=== PATIENT | female | born 2000 | race Caucasian/White ===

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

== ENCOUNTER 2024-01-01 11:56 | Emergency (ER) | payer OTHER ==
[2024-01-01 12:04] VITALS: BMI 29.2
[2024-01-01] MEDS ORDERED: ACETAMINOPHEN INJECTION 100 ML IVPB ONE (12:46)
[2024-01-01] MEDS: ACETAMINOPHEN 1000 MG/100 ML BAG IVPB ONE (13:10)
[2024-01-01] MEDS: SODIUM CHLORIDE 0.9% 500 ML INFUS.BAG IV ONE (13:11)
[2024-01-01 13:23] LABS: BASO % 0.7 % (0-2.0); EOS % 0.9 % (0-4.5); HEMATOCRIT 25.1 % (32.4-45.2); HEMOGLOBIN 7.7 GM/dL (10.7-15.3); LYMPH % 34.5 % (8-40); MCHC 30.5 g/dl (32.0-36.0); MEAN CELL VOLUME 63.4 fl (80-96); MEAN PLT VOLUME 9.7 fl (7.5-11.1); MONO % 7.4 % (3.8-10.2); NEUT % 56.5 % (42.8-82.8); PH,URINE 6.5 (5.0-8.0); PLATELET COUNT 334 10^3/uL (134-434); RBC 3.96 M/mm3 (3.60-5.2); RDW 18.4 % (11.6-15.6); URINE APPEARANCE Error; URINE BILIRUBIN NEGATIVE (NEGATIVE); URINE COLOR YELLOW; URINE GLUCOSE (UA) NEGATIVE (NEGATIVE); URINE KETONE NEGATIVE (NEGATIVE); URINE LEUK ESTERASE NEGATIVE (NEGATIVE); URINE NITRITE NEGATIVE (NEGATIVE); URINE PROTEIN NEGATIVE (NEGATIVE); URINE UROBILINOGEN 0.2 mg/dL (0.2-1.0); WHITE BLOOD COUNT 5.8 K/mm3 (4.0-10.0)
[2024-01-01 13:24] LABS: MCH 19.3 pg (25.7-33.7)
[2024-01-01 13:27] LABS: HCG,QUALITATIVE URINE Negative
[2024-01-01 13:50] LABS: ANISOCYTOSIS 3+; MACROCYTOSIS 0; OVALOCYTE 1+; TARGET CELLS 1+
[2024-01-01 13:58] LABS: POTASSIUM 4.4 mmol/L (3.5-5.1)
[2024-01-01 14:02] LABS: ALBUMIN 4.4 g/dl (3.4-5.0); BLOOD UREA NITROGEN 10.6 mg/dL (7-18)
[2024-01-01 14:05] LABS: CREATININE 0.6 mg/dL (0.55-1.3)
[2024-01-01 14:07] LABS: BILIRUBIN,TOTAL 0.5 mg/dL (0.2-1); TOT PROT 7.8 g/dl (6.4-8.2)
[2024-01-01 17:46] VITALS: BP 114/63; PULSE 63; RESP 18; TEMP 98.4
== END 2024-01-01 18:03 | disposition home or self-care (01) ==
LOC: JER 11:56
PROC: 3E033NZ Introduction of Analgesics, Hypnotics, Sedatives into Peripheral Vein, Percutaneous Approach (ICD-10-PCS; principal; 2024-01-01)
DX: R51.9 Headache, unspecified (principal); R42 Dizziness and giddiness; R11.0 Nausea; D64.9 Anemia, unspecified; W01.198A Fall on same level from slipping, tripping and stumbling with subsequent striking against other object, initial encounter
CPT/HCPCS: 36415; 36430; 70450-TC; 80053; 81003; 84703; 85025; 86850; 86900; 86901; 86922; 87086; 93005; 93010; 99285-25; J0131; P9038; P9058